=== PATIENT | male | born 1960 | race Caucasian/White ===

== ENCOUNTER 2018-10-27 21:16 | Emergency (ER) | payer MEDICARE, OTHER ==
[2018-10-27] MEDS ORDERED: LORazepam 1 MG Tab PO ONE (21:17)
[2018-10-27] MEDS ORDERED: Clindamycin Phosphate 900 MG in Sodium Chloride 0.9% 100 ML IV ONE (21:41)
[2018-10-27] MEDS ORDERED: Sodium Chloride 0.9% 1,000 ML IV ONE (21:41)
--- NOTE | 2018-10-27 21:47 | EDM.PDOC ---
ED HPI GENERAL MEDICAL PROBLEM - General Chief Complaint: Abdominal Pain Stated Complaint: PAIN ON RIGHT SIDE. BIOPSY ON LIVER SUNDAY Time Seen by Provider: 10/27/18 21:43 Source of Information: Reports: Patient History Limitations: Reports: No Limitations - History of Present Illness INITIAL COMMENTS - FREE TEXT/NARRATIVE: had liver Bx Sunday was ok till yesterday started having right side pain where Bx was done, did eat some steak tonight but abd pain gto worse, no N/V/D. also has abscess tooth been taking amox but not getting better. Right Upper Abdomen Pain Score (Numeric/FACES): 9 - Related Data Allergies Allergy/AdvReac Type Severity Reaction Status Date / Time acetaminophen [From Vicodin] Allergy rash Verified 10/27/18 22:00 itching hydrocodone [From Vicodin] Allergy rash Verified 10/27/18 22:00 itching shellfish derived Allergy tongue Verified 10/27/18 22:00 swells Sulfa (Sulfonamide Allergy Rash Verified 10/27/18 22:00 Antibiotics) Home Meds: Home Meds Albuterol Sulfate [Proair Hfa] 2 puff INH ASDIRECTED PRN 07/07/18 [History] Albuterol/Ipratropium [Combivent Respimat] 2 puff INH ASDIRECTED PRN 07/07/18 [ History] Carbidopa/Levodopa [Carbidopa-Levodopa 25-250] 1 tab PO BEDTIME 07/07/18 [ History] Cetirizine HCl [Allergy] 10 mg PO DAILY PRN 07/07/18 [History] Cholecalciferol (Vitamin D3) [Vitamin D3] 1,000 units PO DAILY 07/07/18 [History ] Diclofenac Sodium 1 applic TOP ASDIRECTED PRN 07/07/18 [History] Glimepiride 4 mg PO DAILY 07/07/18 [History] Losartan Potassium 25 mg PO BID 07/07/18 [History] Omeprazole 20 mg PO DAILY 07/07/18 [History] atorvaSTATin [Lipitor] 40 mg PO DAILY 07/07/18 [History] metFORMIN HCl [Metformin HCl ER] 500 mg PO BID 07/07/18 [History] Past Medical History HEENT History: Reports: Impaired Vision Cardiovascular History: Reports: High Cholesterol, Hypertension Respiratory History: Reports: Asthma Gastrointestinal History: Reports: GERD, Other (See Below) Other Gastrointestinal History: pancreas cycts Genitourinary History: Reports: Other (See Below) Other Genitourinary History: spot on kidney "doctors are watching it" Musculoskeletal History: Reports: Back Pain, Chronic Other Musculoskeletal History: Thoracic pain Neurological History: Reports: Other (See Below) Other Neuro History: restless legs Endocrine/Metabolic History: Reports: Diabetes, Type II, Obesity/BMI 30+ Hematologic History: Reports: None Immunologic History: Reports: None Oncologic (Cancer) History: Reports: None Dermatologic History: Reports: Eczema - Past Surgical History GI Surgical History: Reports: Other (See Below) Other GI Surgeries/Procedures: liver biopsy 10/2018 Musculoskeletal Surgical History: Reports: Other (See Below) Other Musculoskeletal Surgeries/Procedures:: L4, L5, S1 fusion Social & Family History - Family History Family Medical History: Noncontributory - Tobacco Use Smoking Status *Q: Current Every Day Smoker Years of Tobacco use: 30 Packs/Tins Daily: 0.4 - Caffeine Use Caffeine Use: Reports: Coffee - Recreational Drug Use Recreational Drug Use: Yes Drug Use in Last 12 Months: Yes Recreational Drug Type: Reports: Marijuana/Hashish - Living Situation & Occupation Living situation: Reports: , with Family ED ROS GENERAL - Review of Systems Review Of Systems: ROS reveals no pertinent complaints other than HPI. ED EXAM, GI/ABD - Physical Exam Exam: See Below Exam Limited By: No Limitations General Appearance: Alert, WD/WN, Mild Distress, Moderate Distress, Other ( discomfprt) Ears: Hearing Grossly Normal Throat/Mouth: Normal Voice, No Airway Compromise, Other (dental abscess) Head: Atraumatic Neck: Non-Tender, Full Range of Motion Respiratory/Chest: No Respiratory Distress Cardiovascular: Regular Rate, Rhythm GI/Abdominal Exam: Tender, Other (RUQ region). No: Distended, Guarding, Rigid, Rebound Neurological: Alert, Oriented, Normal Cognition, Normal Gait, No Motor/Sensory Deficits Psychiatric: Flat Affect Skin Exam: Warm, Dry, Normal Color Lymphatic: No Adenopathy Course - Vital Signs Last Recorded V/S: Last Vital Signs Temp 37.4 C 10/27/18 21:25 Pulse 86 10/28/18 00:16 Resp 16 10/27/18 23:56 BP 114/54 L 10/28/18 00:16 Pulse Ox 93 L 10/28/18 00:16 - Orders/Labs/Meds Orders: Active Orders 24 hr Category Date Time Status Abdomen Pelvis w Cont [CT] Urgent Exams 10/27/18 22:25 Taken CULTURE BLOOD [BC] Stat Lab 10/27/18 21:55 Received Labs: Laboratory Tests 10/27/18 10/27/18 10/27/18 Range/Units 20:30 21:55 21:55 WBC 13.4 H (5.0-10.0) 10^3/uL RBC 4.89 (4.6-6.2) 10^6/uL Hgb 15.5 (14.0-18.0) g/dL Hct 45.2 (40.0-54.0) % MCV 92.4 D (80-100) fL MCH 31.7 (27.0-34.0) pg MCHC 34.3 (33.0-35.0) g/dL Plt Count 202 (150-450) 10^3/uL Neut % (Auto) 69.0 (42.2-75.2) % Lymph % (Auto) 18.7 L (20.5-50.1) % Davis % (Auto) 9.8 H (2-8) % Eos % (Auto) 2.2 (1.0-3.0) % Baso % (Auto) 0.3 (0.0-1.0) % Sodium 137 (135-145) mmol/L Potassium 3.9 (3.6-5.0) mmol/L Chloride 105 (101-111) mmol/L Carbon Dioxide 21.0 (21.0-31.0) mmol/L Anion Gap 14.9 BUN 15 (7-18) mg/dL Creatinine 1.1 (0.6-1.3) mg/dL Est Cr Clr Drug Dosing 79.36 mL/min Estimated GFR (MDRD) > 60 BUN/Creatinine Ratio 13.63 Glucose 180 H (74-105) mg/dL Lactic Acid (0.5-2.2) mmol/L Calcium 9.4 (8.4-10.2) mg/dl Total Bilirubin 0.6 (0.2-1.0) mg/dL AST 24 (10-42) IU/L ALT 32 (10-60) IU/L Alkaline Phosphatase 40 L (42-121) IU/L Total Protein 7.5 (6.7-8.2) g/dl Albumin 4.2 (3.2-5.5) g/dl Globulin 3.3 Albumin/Globulin Ratio 1.27 Amylase 40 (28-100) U/L Lipase 37 (22-51) U/L Urine Color Yellow (YELLOW) Urine Appearance Clear (CLEAR) Urine pH 5.0 (5.0-9.0) Ur Specific [place] 1.020 (1.005-1.030) Urine Protein 100 H (NEGATIVE) Urine Glucose (UA) Negative (NEGATIVE) Urine Ketones Trace H (NEGATIVE) Urine Occult Blood Negative (NEGATIVE) Urine Nitrite Negative (NEGATIVE) Urine Bilirubin Negative (NEGATIVE) Urine Urobilinogen 0.2 (0.2-1.0) mg/dL Ur Leukocyte Esterase Negative (NEGATIVE) Urine RBC Not seen /HPF Urine WBC 5-10 H (0-5/HPF) /HPF Ur Epithelial Cells Many H /HPF Urine Bacteria Moderate H (0-FEW/HPF) /HPF Urine Mucus Moderate H /LPF 10/27/18 Range/Units 21:55 WBC (5.0-10.0) 10^3/uL RBC (4.6-6.2) 10^6/uL Hgb (14.0-18.0) g/dL Hct (40.0-54.0) % MCV (80-100) fL MCH (27.0-34.0) pg MCHC (33.0-35.0) g/dL Plt Count (150-450) 10^3/uL Neut % (Auto) (42.2-75.2) % Lymph % (Auto) (20.5-50.1) % Davis % (Auto) (2-8) % Eos % (Auto) (1.0-3.0) % Baso % (Auto) (0.0-1.0) % Sodium (135-145) mmol/L Potassium (3.6-5.0) mmol/L Chloride (101-111) mmol/L Carbon Dioxide (21.0-31.0) mmol/L Anion Gap BUN (7-18) mg/dL Creatinine (0.6-1.3) mg/dL Est Cr Clr Drug Dosing mL/min Estimated GFR (MDRD) BUN/Creatinine Ratio Glucose (74-105) mg/dL Lactic Acid 1.5 (0.5-2.2) mmol/L Calcium (8.4-10.2) mg/dl Total Bilirubin (0.2-1.0) mg/dL AST (10-42) IU/L ALT (10-60) IU/L Alkaline Phosphatase (42-121) IU/L Total Protein (6.7-8.2) g/dl Albumin (3.2-5.5) g/dl Globulin Albumin/Globulin Ratio Amylase (28-100) U/L Lipase (22-51) U/L Urine Color (YELLOW) Urine Appearance (CLEAR) Urine pH (5.0-9.0) Ur Specific [place] (1.005-1.030) Urine Protein (NEGATIVE) Urine Glucose (UA) (NEGATIVE) Urine Ketones (NEGATIVE) Urine Occult Blood (NEGATIVE) Urine Nitrite (NEGATIVE) Urine Bilirubin (NEGATIVE) Urine Urobilinogen (0.2-1.0) mg/dL Ur Leukocyte Esterase (NEGATIVE) Urine RBC /HPF Urine WBC (0-5/HPF) /HPF Ur Epithelial Cells /HPF Urine Bacteria (0-FEW/HPF) /HPF Urine Mucus /LPF Meds: Medications Discontinued Medications Generic Name Dose Route Start Last Admin Trade Name Freq PRN Reason Stop Dose Admin Hydromorphone HCl 1 mg 10/27/18 22:12 10/27/18 22:25 Dilaudid IVPUSH 10/27/18 22:13 1 mg ONETIME ONE Administration Hydromorphone HCl 1 mg 10/27/18 23:36 10/27/18 23:41 Dilaudid IVPUSH 10/27/18 23:37 1 mg ONETIME ONE Administration Clindamycin Phosphate 900 mg/ 106 mls @ 200 mls/hr 10/27/18 21:41 10/27/18 22 :03 Sodium Chloride IV 10/27/18 22:12 200 mls/hr ONETIME ONE Administration Sodium Chloride 1,000 mls @ 999 mls/hr 10/27/18 21:41 10/27/18 22:02 Normal Saline IV 10/27/18 22:41 999 mls/hr .BOLUS ONE Administration Iopamidol 100 ml 10/27/18 22:24 10/27/18 22:57 Isovue-300 (61%) IVPUSH 10/27/18 22:25 100 ml ONETIME ONE Administration Ondansetron HCl 4 mg 10/27/18 22:12 10/27/18 22:23 Zofran IV 10/27/18 22:13 4 mg ONETIME ONE Administration - Re-Assessments/Exams Free Text/Narrative Re-Assessment/Exam: 10/28/18 00:25 results discussed with pt. Departure - Departure Time of Disposition: 00:25 Disposition: Home, Self-Care 01 Condition: Fair Clinical Impression: Dental abscess, History of liver biopsy Abdominal pain Qualifiers: Abdominal location: right upper quadrant Qualified Code(s): R10.11 - Right upper quadrant pain - Discharge Information Instructions: Abdominal Pain, Adult, [id number] Forms: ED Department Discharge Additional Instructions: 1) see family doctor tomorrow for follow up rx givne; clindamycin 300mg qid x 40 - My Orders Last 24 Hours: My Active Orders 10/27/18 21:55 CULTURE BLOOD [BC] Stat 10/27/18 22:25 Abdomen Pelvis w Cont [CT] Urgent - Assessment/Plan Last 24 Hours: My Active Orders 10/27/18 21:55 CULTURE BLOOD [BC] Stat 10/27/18 22:25 Abdomen Pelvis w Cont [CT] Urgent
[2018-10-27] MEDS ORDERED: Ondansetron 4 MG/2 ML SDV IV ONE (22:12)
[2018-10-27] MEDS ORDERED: HYDROmorphone 1 MG/ML Syringe IVPUSH ONE ×2 (22:12→23:36)
[2018-10-27] MEDS ORDERED: Iopamidol 612 MG/ML 100 ML Bottle IVPUSH ONE (22:24)
[2018-10-27 22:25] LABS: ANION GAP 14.9; CHLORIDE,CL 105 mmol/L (101-111); SODIUM,NA 137 mmol/L (135-145)
[2018-10-28] MEDS ORDERED: LORazepam 1 MG Tab ONE (00:25)
== END 2018-10-28 00:36 | disposition home or self-care (01) ==
LOC: DL.ED 21:16
DX: R10.11 Right upper quadrant pain (principal); K04.7 Periapical abscess without sinus; Z88.6 Allergy status to analgesic agent; Z91.013 Allergy to seafood; Z88.2 Allergy status to sulfonamides
CPT/HCPCS: 36415; 74177; 80053; 81001; 82150; 83605; 83690; 85025; 87040; 96365; 96366; 96368; 96375; 96376; 99284; J1170; J2405; J3490; J7030; J7050; Q9967; 99283; A9270-GY

== ENCOUNTER 2018-12-01 13:46 | Emergency (ER) | payer MEDICARE, OTHER ==
[2018-12-01] MEDS ORDERED: methylPREDNISolone Sodium Succinate 125 MG/2 ML SDV ONE (14:27)
[2018-12-01] MEDS ORDERED: EPINEPHrine 1 MG/ML SDV ONE ×2 (14:28→16:41)
[2018-12-01] MEDS ORDERED: methylPREDNISolone Sodium Succinate 125 MG/2 ML SDV IM ONE (15:31)
[2018-12-01] MEDS ORDERED: EPINEPHrine 1 MG/ML SDV IM ONE ×2 (15:31→16:30)
[2018-12-01] MEDS ORDERED: Famotidine 20 MG/2 ML SDV IVPUSH ONE (16:11)
[2018-12-01] MEDS ORDERED: diphenhydrAMINE 50 MG/ML SDV ONE (16:11)
[2018-12-01] MEDS ORDERED: diphenhydrAMINE 50 MG/ML SDV IVPUSH ONE (16:11)
[2018-12-01 16:44] LABS: CHLORIDE,CL 102 mmol/L (101-111); SODIUM,NA 135 mmol/L (135-145)
[2018-12-01] MEDS ORDERED: EPINEPHrine 1 MG in Dextrose 5% in Water 100 ML IV SCH ×2 (16:45)
--- NOTE | 2018-12-01 16:51 | EDM.PDOC ---
Scribed by Halima Hall 12/01/18 2163 for Eugenie Haas NP ED HPI GENERAL MEDICAL PROBLEM - General Chief Complaint: Allergic Reaction Stated Complaint: RASH-TONGUE SWELLING UP Time Seen by Provider: 12/01/18 14:20 Source of Information: Reports: Patient, RN, RN Notes Reviewed History Limitations: Reports: No Limitations - History of Present Illness INITIAL COMMENTS - FREE TEXT/NARRATIVE: Patient presents to the ER with history of rash and itch. Patient had pneumonia vaccine on Sunday. He has chest tightness and shortness of breath. He has a headache and chills. He is a known diabetic with blood sugar 238 on admit to ER. He took a Benadryl one and half hours prior to coming to ER. He also has nausea and vomiting. Patient has no known cause for allergy reaction. He is allergic to shellfish and sulfa. Onset: Gradual Duration: Getting Worse Location: Reports: Generalized Quality: Reports: Other (itch) Severity: Mild Improves with: Reports: None Worsens with: Reports: None Associated Symptoms: Reports: No Other Symptoms - Related Data Allergies Allergy/AdvReac Type Severity Reaction Status Date / Time acetaminophen [From Vicodin] Allergy rash Verified 12/01/18 15:26 itching hydrocodone [From Vicodin] Allergy rash Verified 12/01/18 15:26 itching shellfish derived Allergy tongue Verified 12/01/18 15:26 swells Sulfa (Sulfonamide Allergy Rash Verified 12/01/18 15:26 Antibiotics) Home Meds: Home Meds Albuterol Sulfate [Proair Hfa] 2 puff INH ASDIRECTED PRN 07/07/18 [History] Albuterol/Ipratropium [Combivent Respimat] 2 puff INH ASDIRECTED PRN 07/07/18 [ History] Carbidopa/Levodopa [Carbidopa-Levodopa 25-250] 1 tab PO BEDTIME 07/07/18 [ History] Cetirizine HCl [Allergy] 10 mg PO DAILY PRN 07/07/18 [History] Cholecalciferol (Vitamin D3) [Vitamin D3] 1,000 units PO DAILY 07/07/18 [History ] Diclofenac Sodium 1 applic TOP ASDIRECTED PRN 07/07/18 [History] Glimepiride 4 mg PO DAILY 07/07/18 [History] Losartan Potassium 25 mg PO BID 07/07/18 [History] Omeprazole 20 mg PO DAILY 07/07/18 [History] atorvaSTATin [Lipitor] 40 mg PO DAILY 07/07/18 [History] metFORMIN HCl [Metformin HCl ER] 500 mg PO BID 07/07/18 [History] Past Medical History HEENT History: Reports: Impaired Vision Cardiovascular History: Reports: High Cholesterol, Hypertension Respiratory History: Reports: Asthma Gastrointestinal History: Reports: GERD, Other (See Below) Other Gastrointestinal History: pancreas cycts Genitourinary History: Reports: Other (See Below) Other Genitourinary History: spot on kidney "doctors are watching it" Musculoskeletal History: Reports: Back Pain, Chronic Other Musculoskeletal History: Thoracic pain Neurological History: Reports: Other (See Below) Other Neuro History: restless legs Endocrine/Metabolic History: Reports: Diabetes, Type II, Obesity/BMI 30+ Hematologic History: Reports: None Immunologic History: Reports: None Oncologic (Cancer) History: Reports: None Dermatologic History: Reports: Eczema - Past Surgical History GI Surgical History: Reports: Other (See Below) Other GI Surgeries/Procedures: liver biopsy 10/2018 Musculoskeletal Surgical History: Reports: Other (See Below) Other Musculoskeletal Surgeries/Procedures:: L4, L5, S1 fusion Social & Family History - Family History Family Medical History: Noncontributory - Caffeine Use Caffeine Use: Reports: Coffee - Living Situation & Occupation Living situation: Reports: , with Family ED ROS ALLERGIC REACTION - Review of Systems Review Of Systems: ROS reveals no pertinent complaints other than HPI. ED EXAM GENERAL NO PERIP PULSE - Physical Exam Exam: See Below Exam Limited By: No Limitations General Appearance: Alert, WD/WN, No Apparent Distress Eye Exam: Bilateral Eye: Normal Inspection Ears: Normal External Exam, Normal Canal, Hearing Grossly Normal, Normal TMs Nose: Normal Inspection, Normal Mucosa, No Blood Throat/Mouth: Normal Inspection, Normal Lips, Normal Teeth, Normal Gums, Normal Oropharynx, Normal Voice, No Airway Compromise, Other (I did not note lips or tongue to be swollen; but patient feels sharri is mildly swollen) Head: Atraumatic, Normocephalic Neck: Normal Inspection, Supple, Non-Tender, Full Range of Motion Respiratory/Chest: Other (chest slightly tight without wheezing) GI/Abdominal: Normal Bowel Sounds, Soft, Non-Tender, No Organomegaly, No Distention, No Abnormal Bruit, No Mass (Male) Exam: No Hernia, Normal Inspection, Normal Prostate, Circumcised Skin Exam: Other (head to toe urticaria and itchy. Questionable angioedema. ) Course - Vital Signs Last Recorded V/S: Last Vital Signs Temp 36.4 C 12/01/18 14:00 Pulse 87 12/01/18 14:00 Resp 24 H 12/01/18 14:00 BP 142/68 H 12/01/18 14:00 Pulse Ox 94 L 12/01/18 14:00 - Orders/Labs/Meds Orders: Active Orders 24 hr Category Date Time Status Blood Glucose Check, Bedside [RC] ONETIME Care 12/01/18 15:47 Active CBC WITH AUTO DIFF [HEME] Stat Lab 12/01/18 14:48 Results CMP [COMPREHENSIVE METABOLIC PN,CMP] [CHEM] Stat Lab 12/01/18 14:48 Received MANUAL DIFFERENTIAL QA/NC [HEME] Stat Lab 12/01/18 14:48 Results Labs: Laboratory Tests 12/01/18 12/01/18 Range/Units 14:48 15:46 WBC 10.0 (5.0-10.0) 10^3/uL RBC 5.96 (4.6-6.2) 10^6/uL Hgb 18.9 H D (14.0-18.0) g/dL Hct 54.5 H (40.0-54.0) % MCV 91.4 (80-100) fL MCH 31.7 (27.0-34.0) pg MCHC 34.7 (33.0-35.0) g/dL Plt Count 201 (150-450) 10^3/uL Neut % (Auto) 62.9 (42.2-75.2) % Lymph % (Auto) 26.8 (20.5-50.1) % [place] % (Auto) 9.2 H (2-8) % Eos % (Auto) 1.0 (1.0-3.0) % Baso % (Auto) 0.1 (0.0-1.0) % Add Manual Diff Yes POC Glucose 158 H (70-105) mg/dl Meds: Medications Discontinued Medications Generic Name Dose Route Start Last Admin Trade Name Freq PRN Reason Stop Dose Admin Diphenhydramine HCl 50 mg 12/01/18 16:11 12/01/18 16:37 Benadryl IVPUSH 12/01/18 16:12 Not Given ONETIME ONE Diphenhydramine HCl Confirm 12/01/18 16:11 12/01/18 16:20 Benadryl Administered 12/01/18 16:12 50 mg Dose Administration 50 mg .ROUTE .STK-MED ONE Epinephrine HCl Confirm 12/01/18 14:28 12/01/18 14:28 Adrenalin Administered 12/01/18 14:29 1 mg Dose Administration 1 mg .ROUTE .STK-MED ONE Epinephrine HCl 0.5 mg 12/01/18 15:31 12/01/18 15:33 Adrenalin IM 12/01/18 15:32 Not Given ONETIME ONE Famotidine 20 mg 12/01/18 16:11 Pepcid IVPUSH 12/01/18 16:12 ONETIME ONE Methylprednisolone Sodium Succinate Confirm 12/01/18 14:27 12/01/18 14:28 Solu-Medrol Administered 12/01/18 14:28 125 mg Dose Administration 125 mg .ROUTE .STK-MED ONE Methylprednisolone Sodium Succinate 125 mg 12/01/18 15:31 12/01/18 15:33 Solu-Medrol IM 12/01/18 15:32 Not Given ONETIME ONE - Re-Assessments/Exams Free Text/Narrative Re-Assessment/Exam: 12/01/18 16:10 Patient given epi 0.5 ml and Solu Medrol on admission. Improved. Many attempts by nursing and anesthesia early on to place IV; but kept blowing. Itch and welts returned at 1610 with tongue swelling increased urticaria and blood pressure dropped; IV site obtained by anesthesia; gave Benadryl 50 mg IM and epi 0.5 ml and pepcid 20 mg iv. After talking to Yesica Mendoza whom accepted to the ER in [place]; patient was started on epi gtt titrating to BP. EMS [facility] here for transfer. 12/01/18 16:46 Departure - Departure Time of Disposition: 16:38 Disposition: DC/Tfer to Acute Hospital 02 Condition: Serious Clinical Impression: Anaphylactic reaction, Hypotension, Diabetes - Discharge Information Forms: ED Department Discharge, Interfacility Transfer EMTALA - My Orders Last 24 Hours: My Active Orders 12/01/18 14:48 CBC WITH AUTO DIFF [HEME] Stat CMP [COMPREHENSIVE METABOLIC PN,CMP] [CHEM] Stat MANUAL DIFFERENTIAL QA/NC [HEME] Stat 12/01/18 15:47 Blood Glucose Check, Bedside [RC] ONETIME - Assessment/Plan Last 24 Hours: My Active Orders 12/01/18 14:48 CBC WITH AUTO DIFF [HEME] Stat CMP [COMPREHENSIVE METABOLIC PN,CMP] [CHEM] Stat MANUAL DIFFERENTIAL QA/NC [HEME] Stat 12/01/18 15:47 Blood Glucose Check, Bedside [RC] ONETIME I have read and agree with the documentation that has been completed regarding this visit. By signing this record, I attest that the documentation was completed in my physical presence and is an accurate record of the encounter.
--- NOTE | 2018-12-01 17:01 | PCM.PRNOTE ---
- Free Text/Narrative Note: Consulted by ED to insert an IV on a patient who has had multiple attempts by multiple RN. Upon entering room, pt is lying on a stretcher but in distress secondary to rash/allergic reaction. A tourniquet was applied to the left bicep. The right antecubital area was cleaned with alcohol. Using a 20 gauge angiocath, an IV was inserted into the left lateral antecubital area on first attempt. Excellent blood return. IV flushes without difficulty. IV was covered with tegaderm and secured with tape. RN was notified/present. Procedure Date & Time: 12/01/18 [id number]
== END 2018-12-01 17:40 ==
LOC: DL.ED 13:46
DX: I95.9 Hypotension, unspecified (principal); R22.0 Localized swelling, mass and lump, head; T78.2XXA Anaphylactic shock, unspecified, initial encounter; E78.00 Pure hypercholesterolemia, unspecified; I10 Essential (primary) hypertension; J45.909 Unspecified asthma, uncomplicated; E11.9 Type 2 diabetes mellitus without complications; Z91.013 Allergy to seafood; Z88.8 Allergy status to other drugs, medicaments and biological substances; Z88.5 Allergy status to narcotic agent; Z88.2 Allergy status to sulfonamides; Z79.899 Other long term (current) drug therapy
CPT/HCPCS: 36410; 36415; 80053; 82962; 85025; 96365; 96372; 96375; 99285; J0171; J1200; J2930; J3490; J7060

== ENCOUNTER 2019-08-24 13:30 | Emergency (ER) | payer MEDICARE, OTHER ==
--- NOTE | 2019-08-24 14:47 | EDM.PDOC ---
ED HPI GENERAL MEDICAL PROBLEM - General Chief Complaint: General Stated Complaint: COUGHING/SHAKY/WEAK/POSSIBLE INFLUENZA Time Seen by Provider: 08/24/19 15:43 Source of Information: Reports: Patient, RN, RN Notes Reviewed History Limitations: Reports: No Limitations - History of Present Illness INITIAL COMMENTS - FREE TEXT/NARRATIVE: A 59-year-old male who presents with his spouse with complaints of malaise, fever, chills, nonproductive cough, sore throat x3 days. Patient was just getting over a sinus infection 1 week ago and became sick again 3 days ago. His is currently ill. He admits to trying Tylenol 500 mg prior to ER visit. He denies any nausea, vomiting, chest pain, shortness of breath or palpitations. Onset Date: 08/21/19 Duration: Constant Location: Reports: Generalized Quality: Reports: Ache Severity: Mild Improves with: Reports: None Worsens with: Reports: None Associated Symptoms: Reports: No Other Symptoms Head Pain Score (Numeric/FACES): 4 - Related Data Allergies Allergy/AdvReac Type Severity Reaction Status Date / Time acetaminophen [From Vicodin] Allergy rash Verified 12/01/18 15:26 itching hydrocodone [From Vicodin] Allergy rash Verified 12/01/18 15:26 itching shellfish derived Allergy tongue Verified 12/01/18 15:26 swells Sulfa (Sulfonamide Allergy Rash Verified 08/24/19 14:05 Antibiotics) Home Meds: Home Meds Albuterol Sulfate [Proair Hfa] 2 puff INH ASDIRECTED PRN 07/07/18 [History] Albuterol/Ipratropium [Combivent Respimat] 2 puff INH ASDIRECTED PRN 07/07/18 [ History] Carbidopa/Levodopa [Carbidopa-Levodopa 25-250] 1 tab PO BEDTIME 07/07/18 [ History] Cetirizine HCl [Allergy] 10 mg PO DAILY PRN 07/07/18 [History] Cholecalciferol (Vitamin D3) [Vitamin D3] 1,000 units PO DAILY 07/07/18 [History ] Diclofenac Sodium 1 applic TOP ASDIRECTED PRN 07/07/18 [History] Glimepiride 4 mg PO DAILY 07/07/18 [History] Losartan Potassium 25 mg PO BID 07/07/18 [History] Omeprazole 20 mg PO DAILY 07/07/18 [History] atorvaSTATin [Lipitor] 40 mg PO DAILY 07/07/18 [History] metFORMIN HCl [Metformin HCl ER] 500 mg PO BID 07/07/18 [History] Past Medical History HEENT History: Reports: Impaired Vision Cardiovascular History: Reports: High Cholesterol, Hypertension Respiratory History: Reports: Asthma Gastrointestinal History: Reports: GERD, Other (See Below) Other Gastrointestinal History: pancreas cycts Genitourinary History: Reports: Other (See Below) Other Genitourinary History: spot on kidney "doctors are watching it" Musculoskeletal History: Reports: Back Pain, Chronic Other Musculoskeletal History: Thoracic pain Neurological History: Reports: Other (See Below) Other Neuro History: restless legs Endocrine/Metabolic History: Reports: Diabetes, Type II, Obesity/BMI 30+ Hematologic History: Reports: None Immunologic History: Reports: None Oncologic (Cancer) History: Reports: None Dermatologic History: Reports: Eczema - Past Surgical History GI Surgical History: Reports: Other (See Below) Other GI Surgeries/Procedures: liver biopsy 10/2018 Musculoskeletal Surgical History: Reports: Other (See Below) Other Musculoskeletal Surgeries/Procedures:: L4, L5, S1 fusion Social & Family History - Family History Family Medical History: Noncontributory - Tobacco Use Smoking Status *Q: Former Smoker Years of Tobacco use: 30 Used Tobacco, but Quit: Yes Month/Year Tobacco Last Used: 2015 - Caffeine Use Caffeine Use: Reports: Coffee - Alcohol Use Days Per Week of Alcohol Use: 1 Number of Drinks Per Day: 1 Total Drinks Per Week: 1 - Recreational Drug Use Recreational Drug Use: No - Living Situation & Occupation Living situation: Reports: , with Family ED ROS GENERAL - Review of Systems Review Of Systems: Comprehensive ROS is negative, except as noted in HPI. ED EXAM, GENERAL - Physical Exam Exam: See Below Exam Limited By: No Limitations General Appearance: Alert, WD/WN, No Apparent Distress Eye Exam: Bilateral Eye: Normal Inspection Ears: Normal External Exam, Normal Canal, Hearing Grossly Normal, Normal TMs Nose: Normal Inspection, Normal Mucosa, No Blood Throat/Mouth: Normal Inspection, Normal Lips, Normal Teeth, Normal Gums, Normal Oropharynx, Normal Voice, No Airway Compromise Head: Atraumatic, Normocephalic Neck: Normal Inspection, Supple, Non-Tender, Full Range of Motion Respiratory/Chest: No Respiratory Distress, Lungs Clear, Normal Breath Sounds, No Accessory Muscle Use, Chest Non-Tender Cardiovascular: Normal Peripheral Pulses, Regular Rate, Rhythm, No Edema, No Gallop, No JVD, No Murmur, No Rub GI/Abdominal: Normal Bowel Sounds, Soft, Non-Tender, No Organomegaly, No Distention, No Abnormal Bruit, No Mass (Male) Exam: Deferred Rectal (Males) Exam: Deferred Neurological: Alert Psychiatric: Normal Affect, Normal Mood Skin Exam: Warm, Dry, Intact, Normal Color, No Rash Lymphatic: No Adenopathy Course - Vital Signs Last Recorded V/S: Last Vital Signs Temp 98.3 F 08/24/19 13:39 Pulse 93 08/24/19 13:39 Resp 18 08/24/19 13:39 BP 125/65 08/24/19 13:39 Pulse Ox 99 08/24/19 13:39 - Orders/Labs/Meds Labs: Influenza A: Positive. Influenza B: Negative. Meds: Medications Discontinued Medications Generic Name Dose Route Start Last Admin Trade Name Eleuterio PRN Reason Stop Dose Admin Acetaminophen 650 mg 08/24/19 15:56 Tylenol PO 08/24/19 15:57 NOW ONE Oseltamivir Phosphate 75 mg 08/24/19 15:56 Tamiflu PO 08/24/19 15:57 ONETIME ONE - Re-Assessments/Exams Free Text/Narrative Re-Assessment/Exam: 08/24/19 16:12 Reviewed lab results with patient and spouse. Tamiflu 75mg and Tylenol 650mg administered. RX with Tamiflu sent with patient. Recommended he push fluids and rest. Salt water gargles 2 to 3 times a day for sore throat. Tylenol p.r.n. every 6 hours not exceeding 4,000 mg a day recommended. Follow up in clinic if symptoms persist. Departure - Departure Time of Disposition: 16:13 Disposition: Home, Self-Care 01 Condition: Good Clinical Impression: Influenza A - Discharge Information Instructions: Influenza, Adult, [id number] Forms: ED Department Discharge Additional Instructions: RX: Tamiflu 75 mg. Push fluids. Rest. Follow up with PCP if not improved. Sepsis Event Note - Evaluation Sepsis Screening Result: No Definite Risk - Focused Exam Vital Signs: Vital Signs Temp Pulse Resp BP Pulse Ox 08/24/19 13:39 98.3 F 93 18 125/65 99 Date Exam was Performed: 08/24/19 Time Exam was Performed: 16:08
[2019-08-24] MEDS ORDERED: Oseltamivir 75 MG Cap PO ONE (15:56)
[2019-08-24] MEDS ORDERED: Acetaminophen 325 MG Tab PO ONE (15:56)
== END 2019-08-24 16:24 | disposition home or self-care (01) ==
LOC: DL.ED 13:30
DX: J10.1 Influenza due to other identified influenza virus with other respiratory manifestations (principal); E11.9 Type 2 diabetes mellitus without complications; E66.9 Obesity, unspecified; I10 Essential (primary) hypertension; E78.00 Pure hypercholesterolemia, unspecified; J45.909 Unspecified asthma, uncomplicated; K21.9 Gastro-esophageal reflux disease without esophagitis; Z88.6 Allergy status to analgesic agent; Z68.34 Body mass index [BMI] 34.0-34.9, adult; Z88.2 Allergy status to sulfonamides; Z91.013 Allergy to seafood; Z79.899 Other long term (current) drug therapy; Z79.84 Long term (current) use of oral hypoglycemic drugs; Z87.891 Personal history of nicotine dependence
CPT/HCPCS: 87804; 99283; A9270

== ENCOUNTER 2020-06-25 14:59 | Emergency (ER) | payer MEDICARE, OTHER ==
--- NOTE | 2020-06-25 15:44 | EDM.PDOC ---
ED HPI GENERAL MEDICAL PROBLEM - General Chief Complaint: Genitourinary Problem Stated Complaint: right kidney pain prior kidney cancer Time Seen by Provider: 06/25/20 15:30 Source of Information: Reports: Patient History Limitations: Reports: No Limitations - History of Present Illness INITIAL COMMENTS - FREE TEXT/NARRATIVE: This 60 yo male patient reports to the ED with right kidney, right upper quadrant pain and right flank pain getting worse over the past 3 weeks. The patient reports he has a history of right sided kidney cancer that has been surgically removed. The patient reports he has needed to have injections into his kidney 2 times in the past due to increased pain. The patient has attempted to get back into his specialist (Dr. Jarrett), but has not been able to get into him yet. The patient reports his pain is now at a level that he can not tolerate it at home. The patient has been taking Aleve, ibuprofen and Tylenol with little to no symptom relief. The patient reports his current pain is between a 8-5-8/10 at the time of visit. The patient reports he would be able to tolerate pain at a 3/10. The patient reports he has safely taken Dilaudid in the past, but got some constipation from that. Duration: Week(s): (3), Constant, Getting Worse Location: Reports: Abdomen (RUQ), Back (Right flank) Quality: Reports: Ache, Sharp Severity: Severe Improves with: Reports: None Worsens with: Reports: None Context: Reports: Other Associated Symptoms: Reports: No Other Symptoms Treatments CONSTRUCTION CHECKER: Reports: Acetaminophen, NSAIDS Right Flank Pain Score (Numeric/FACES): 8 - Related Data Allergies Allergy/AdvReac Type Severity Reaction Status Date / Time acetaminophen [From Vicodin] Allergy rash Verified 12/01/18 15:26 itching hydrocodone [From Vicodin] Allergy rash Verified 12/01/18 15:26 itching shellfish derived Allergy tongue Verified 12/01/18 15:26 swells Sulfa (Sulfonamide Allergy Rash Verified 08/24/19 14:05 Antibiotics) Home Meds: Home Meds Albuterol Sulfate [Proair Hfa] 2 puff INH ASDIRECTED PRN 07/07/18 [History] Albuterol/Ipratropium [Combivent Respimat] 2 puff INH ASDIRECTED PRN 07/07/18 [History] Carbidopa/Levodopa [Carbidopa-Levodopa 25-250] 1 tab PO BEDTIME 07/07/18 [Hist ory] Cetirizine HCl [Allergy] 10 mg PO DAILY PRN 07/07/18 [History] Cholecalciferol (Vitamin D3) [Vitamin D3] 1,000 units PO DAILY 07/07/18 [History] Diclofenac Sodium 1 applic TOP ASDIRECTED PRN 07/07/18 [History] Glimepiride 4 mg PO DAILY 07/07/18 [History] Losartan Potassium 25 mg PO BID 07/07/18 [History] Omeprazole 20 mg PO DAILY 07/07/18 [History] atorvaSTATin [Lipitor] 40 mg PO DAILY 07/07/18 [History] metFORMIN HCl [Metformin HCl ER] 500 mg PO BID 07/07/18 [History] Past Medical History HEENT History: Reports: Impaired Vision Cardiovascular History: Reports: High Cholesterol, Hypertension Respiratory History: Reports: Asthma Gastrointestinal History: Reports: GERD, Other (See Below) Other Gastrointestinal History: pancreas cycts Genitourinary History: Reports: Other (See Below) Other Genitourinary History: spot on kidney "doctors are watching it" Musculoskeletal History: Reports: Back Pain, Chronic Other Musculoskeletal History: Thoracic pain Neurological History: Reports: Other (See Below) Other Neuro History: restless legs Endocrine/Metabolic History: Reports: Diabetes, Type II, Obesity/BMI 30+ Hematologic History: Reports: None Immunologic History: Reports: None Oncologic (Cancer) History: Reports: None Dermatologic History: Reports: Eczema - Past Surgical History GI Surgical History: Reports: Other (See Below) Other GI Surgeries/Procedures: liver biopsy 10/2018 Musculoskeletal Surgical History: Reports: Other (See Below) Other Musculoskeletal Surgeries/Procedures:: L4, L5, S1 fusion Social & Family History - Family History Family Medical History: No Pertinent Family History - Caffeine Use Caffeine Use: Reports: Coffee - Living Situation & Occupation Living situation: Reports: , with Family ED ROS GENERAL - Review of Systems Review Of Systems: Comprehensive ROS is negative, except as noted in HPI. ED EXAM, RENAL/ - Physical Exam Exam: See Below Exam Limited By: No Limitations General Appearance: Alert, WD/WN, Moderate Distress Eye Exam: Bilateral Eye: EOMI, Normal Inspection, PERRL Ears: Normal External Exam, Normal Canal, Hearing Grossly Normal, Normal TMs Nose: Normal Inspection, Normal Mucosa, No Blood Throat/Mouth: Normal Inspection, Normal Lips, Normal Teeth, Normal Gums, Normal Oropharynx, Normal Voice, No Airway Compromise Head: Atraumatic, Normocephalic Neck: Normal Inspection, Supple, Non-Tender, Full Range of Motion Respiratory/Chest: No Respiratory Distress, Lungs Clear, Normal Breath Sounds, No Accessory Muscle Use, Chest Non-Tender Cardiovascular: Normal Peripheral Pulses, Regular Rate, Rhythm, No Edema, No Gallop, No JVD, No Murmur, No Rub GI/Abdominal: Normal Bowel Sounds, No Organomegaly, No Distention, No Abnormal Bruit, No Mass, Pelvis Stable, Tender (RUQ) (Male) Exam: Deferred Rectal (Males) Exam: Deferred Back Exam: CVA Tenderness (R) Extremities: Normal Inspection, Normal Range of Motion, Non-Tender, Normal Capillary Refill, No Pedal Edema Neurological: Alert, Oriented, CN II-XII Intact, Normal Cognition, Normal Gait, Normal Reflexes, No Motor/Sensory Deficits Psychiatric: Normal Affect, Normal Mood Skin Exam: Warm, Dry, Intact, Normal Color, No Rash Lymphatic: No Adenopathy Course - Vital Signs Last Recorded V/S: Last Vital Signs Temp 36.6 C 06/25/20 15:15 Pulse 79 06/25/20 15:15 Resp 16 06/25/20 15:15 BP 154/87 H 06/25/20 15:15 Pulse Ox 100 06/25/20 15:15 - Orders/Labs/Meds Labs: Laboratory Tests 06/25/20 06/25/20 06/25/20 Range/Units 15:29 15:29 15:45 WBC 8.7 (5.0-10.0) 10^3/uL RBC 4.66 (4.6-6.2) 10^6/uL Hgb 15.5 D (14.0-18.0) g/dL Hct 45.0 (40.0-54.0) % MCV 96.6 D (80-100) fL MCH 33.3 (27.0-34.0) pg MCHC 34.4 (33.0-35.0) g/dL Plt Count 185 (150-450) 10^3/uL Neut % (Auto) 60.1 (42.2-75.2) % Lymph % (Auto) 29.0 (20.5-50.1) % [place] % (Auto) 8.9 H (2-8) % Eos % (Auto) 1.4 (1.0-3.0) % Baso % (Auto) 0.6 (0.0-1.0) % Sodium (136-145) mmol/L Potassium (3.5-5.1) mmol/L Chloride (98-107) mmol/L Carbon Dioxide (21-32) mmol/L Anion Gap (7-13) mEq/L BUN (7-18) mg/dL Creatinine (0.70-1.30) mg/dL Est Cr Clr Drug Dosing mL/min Estimated GFR (MDRD) BUN/Creatinine Ratio (No establ ref range) Glucose (74-99) mg/dL Calcium (8.5-10.1) mg/dL Total Bilirubin (0.2-1.0) mg/dL AST (15-37) U/L ALT (16-63) U/L Alkaline Phosphatase (46-116) U/L Total Protein (6.4-8.2) g/dL Albumin (3.4-5.0) g/dL Globulin Albumin/Globulin Ratio Urine Color Yellow (YELLOW) Urine Appearance Clear (CLEAR) Urine pH 6.5 (5.0-9.0) Ur Specific [place] >= 1.030 (1.005-1.030) Urine Protein 100 H (NEGATIVE) Urine Glucose (UA) Negative (NEGATIVE) Urine Ketones Negative (NEGATIVE) Urine Occult Blood Negative (NEGATIVE) Urine Nitrite Negative (NEGATIVE) Urine Bilirubin Negative (NEGATIVE) Urine Urobilinogen 0.2 (0.2-1.0) mg/dL Ur Leukocyte Esterase Negative (NEGATIVE) Urine RBC 0-5 /HPF Urine WBC 0-5 (0-5/HPF) /HPF Ur Epithelial Cells Few (NOT SEEN) /HPF Amorphous Sediment Few (NOT SEEN) /HPF Urine Bacteria Few (0-FEW/HPF) /HPF Urine Mucus Few H (NOT SEEN) /LPF Urine Opiates Screen Negative (NEGATIVE) Ur Oxycodone Screen Negative (NEGATIVE) Urine Methadone Screen Negative (NEGATIVE) Ur Barbiturates Screen Negative (NEGATIVE) U Tricyclic Antidepress Positive H (NEGATIVE) Ur Phencyclidine Scrn Negative (NEGATIVE) Ur Amphetamine Screen Negative (NEGATIVE) U Methamphetamines Scrn Negative (NEGATIVE) Urine MDMA Screen Negative (NEGATIVE) U Benzodiazepines Scrn Negative (NEGATIVE) Urine Cocaine Screen Negative (NEGATIVE) U Marijuana (THC) Screen Positive H (NEGATIVE) 06/25/20 Range/Units 15:45 WBC (5.0-10.0) 10^3/uL RBC (4.6-6.2) 10^6/uL Hgb (14.0-18.0) g/dL Hct (40.0-54.0) % MCV (80-100) fL MCH (27.0-34.0) pg MCHC (33.0-35.0) g/dL Plt Count (150-450) 10^3/uL Neut % (Auto) (42.2-75.2) % Lymph % (Auto) (20.5-50.1) % [place] % (Auto) (2-8) % Eos % (Auto) (1.0-3.0) % Baso % (Auto) (0.0-1.0) % Sodium 143 (136-145) mmol/L Potassium 4.0 (3.5-5.1) mmol/L Chloride 103 (98-107) mmol/L Carbon Dioxide 30 (21-32) mmol/L Anion Gap 14.0 H (7-13) mEq/L BUN 13 (7-18) mg/dL Creatinine 0.96 (0.70-1.30) mg/dL Est Cr Clr Drug Dosing 88.69 mL/min Estimated GFR (MDRD) > 60 BUN/Creatinine Ratio 13.5 (No establ ref range) Glucose 155 H (74-99) mg/dL Calcium 9.4 (8.5-10.1) mg/dL Total Bilirubin 0.4 (0.2-1.0) mg/dL AST 21 (15-37) U/L ALT 53 (16-63) U/L Alkaline Phosphatase 36 L (46-116) U/L Total Protein 6.9 (6.4-8.2) g/dL Albumin 4.2 (3.4-5.0) g/dL Globulin 2.7 Albumin/Globulin Ratio 1.6 Urine Color (YELLOW) Urine Appearance (CLEAR) Urine pH (5.0-9.0) Ur Specific [place] (1.005-1.030) Urine Protein (NEGATIVE) Urine Glucose (UA) (NEGATIVE) Urine Ketones (NEGATIVE) Urine Occult Blood (NEGATIVE) Urine Nitrite (NEGATIVE) Urine Bilirubin (NEGATIVE) Urine Urobilinogen (0.2-1.0) mg/dL Ur Leukocyte Esterase (NEGATIVE) Urine RBC /HPF Urine WBC (0-5/HPF) /HPF Ur Epithelial Cells (NOT SEEN) /HPF Amorphous Sediment (NOT SEEN) /HPF Urine Bacteria (0-FEW/HPF) /HPF Urine Mucus (NOT SEEN) /LPF Urine Opiates Screen (NEGATIVE) Ur Oxycodone Screen (NEGATIVE) Urine Methadone Screen (NEGATIVE) Ur Barbiturates Screen (NEGATIVE) U Tricyclic Antidepress (NEGATIVE) Ur Phencyclidine Scrn (NEGATIVE) Ur Amphetamine Screen (NEGATIVE) U Methamphetamines Scrn (NEGATIVE) Urine MDMA Screen (NEGATIVE) U Benzodiazepines Scrn (NEGATIVE) Urine Cocaine Screen (NEGATIVE) U Marijuana (THC) Screen (NEGATIVE) Meds: Medications Discontinued Medications Generic Name Dose Route Start Last Admin Trade Name Freq PRN Reason Stop Dose Admin Hydromorphone HCl 0.5 mg 06/25/20 15:38 06/25/20 15:49 Dilaudid IVPUSH 06/25/20 15:39 0.5 mg ONETIME ONE Administration Hydromorphone HCl 0.5 mg 06/25/20 17:02 Dilaudid IVPUSH 06/25/20 17:03 ONETIME ONE Departure - Departure Time of Disposition: 17:04 Disposition: Home, Self-Care 01 Condition: Fair Clinical Impression: Right flank pain, chronic - Discharge Information *PRESCRIPTION DRUG MONITORING PROGRAM REVIEWED*: Not Applicable *COPY OF PRESCRIPTION DRUG MONITORING REPORT IN PATIENT ANJU: Not Applicable Instructions: Chronic Pain, Adult Forms: ED Department Discharge Care Plan Goals: The patient was advised of the examination, lab and CT results during the visit. The patient was given two IV doses of Dilaudid (0.5 mg) while in the ED. The patient was discharged with a script for Percocet (5/325) #12 to take 1 by mouth every 6 hours as needed for pain. If the patient has any additional symptoms or concerns, the patient should either return to the emergency department or visit his primary care facility. Sepsis Event Note (ED) - Focused Exam Vital Signs: Vital Signs Temp Pulse Resp BP Pulse Ox 06/25/20 15:15 36.6 C 79 16 154/87 H 100
[2020-06-25] MEDS: HYDROmorphone 0.5 MG/0.5 ML Syringe IVPUSH ONE ×2 (15:49→17:09)
[2020-06-25 16:18] LABS: CHLORIDE,CL 103 mmol/L (98-107); SODIUM,NA 143 mmol/L (136-145)
--- NOTE | 2020-06-25 16:59 | CT ---
PROCEDURE INFORMATION: Exam: CT Abdomen Without Contrast Exam date and time: 06/25/2020 4:29 PM Age: 60 years old Clinical indication: Other: HX right kidney CA, liver cyst, pancreatitis cyst; Additional info: Right upper abdominal/right flank pain TECHNIQUE: Imaging protocol: Computed tomography images of the abdomen without contrast. Radiation optimization: All CT scans at this facility use at least one of these dose optimization techniques: automated exposure control; mA and/or kV adjustment per patient size (includes targeted exams where dose is matched to clinical indication); or iterative reconstruction. COMPARISON: 1. CT Abdomen Pelvis w Cont 10/27/2018 11:[address] abdomen and pelvis without contrast 07/07/2018 FINDINGS: Limitations: None. Liver: Chronic focal lateral right liver hypoattenuation. The liver is otherwise normal. Gallbladder and bile ducts: Normal. Pancreas: Normal. Spleen: Normal. Adrenals: Normal. Kidneys and ureters: Amorphous calcification in the bilateral renal pyramids. Chronic unchanged subcentimeter left renal cortical cyst. Stomach and bowel: Normal stomach and incompletely visualized bowel. Appendix: Normal appendix. Intraperitoneal space: No ascites, pneumoperitoneum or peritoneal lesion. Lymph nodes: No mesenteric or retroperitoneal adenopathy. Vasculature: Benign variant circumaortic left renal vein. Mild scattered aortosclerosis. The vessels have normal caliber. Multivessel coronary artery calcification. Bones/joints: L4 through S1 bilateral transpedicular fixation following laminectomies and disc spacer placement. Soft tissues: Chronic unchanged fat containing umbilical hernia. IMPRESSION: 1. Normal pancreas. No acute disease. 2. Chronic unchanged right liver hypodensity/hypodense region, fatty infiltration versus atypical cyst or other benign entity. 3. There are findings indicating mild bilateral medullary sponge kidney and there is a simple cyst related to the left kidney but no renal masses or evidence of prior surgical intervention. 4. Unchanged small ventral fat containing hernia.
== END 2020-06-25 17:13 | disposition home or self-care (01) ==
LOC: DL.ED 14:59
DX: R10.11 Right upper quadrant pain (principal); E78.00 Pure hypercholesterolemia, unspecified; I10 Essential (primary) hypertension; J45.909 Unspecified asthma, uncomplicated; K21.9 Gastro-esophageal reflux disease without esophagitis; E11.9 Type 2 diabetes mellitus without complications; E66.9 Obesity, unspecified; Z68.32 Body mass index [BMI] 32.0-32.9, adult; Z88.6 Allergy status to analgesic agent; Z88.5 Allergy status to narcotic agent; Z91.013 Allergy to seafood; Z88.2 Allergy status to sulfonamides; Z79.84 Long term (current) use of oral hypoglycemic drugs; Z79.899 Other long term (current) drug therapy
CPT/HCPCS: 36415; 74150; 80053; 80305; 81001; 85025; 96374; 96376; 99283; 99284; J1170

== ENCOUNTER 2022-04-26 16:28 | Emergency (ER) | payer OTHER, MEDICARE | END 2022-04-26 17:32 | disposition home or self-care (01) | LOC: DL.ED 16:28 | DX: S60.212A Contusion of left wrist, initial encounter (principal); J45.909 Unspecified asthma, uncomplicated; E78.00 Pure hypercholesterolemia, unspecified; I10 Essential (primary) hypertension; E11.9 Type 2 diabetes mellitus without complications; E66.9 Obesity, unspecified; Z68.1 Body mass index [BMI] 19.9 or less, adult; Z88.6 Allergy status to analgesic agent; Z88.5 Allergy status to narcotic agent; Z91.013 Allergy to seafood; Z88.2 Allergy status to sulfonamides | CPT/HCPCS: 73110-LT; 99283 ==

== ENCOUNTER 2022-06-17 11:30 | Emergency (ER) | payer OTHER, MEDICARE | END 2022-06-17 12:50 | disposition home or self-care (01) | LOC: DL.ED 11:30 | DX: S40.011A Contusion of right shoulder, initial encounter (principal); M19.011 Primary osteoarthritis, right shoulder; E78.00 Pure hypercholesterolemia, unspecified; I10 Essential (primary) hypertension; K21.9 Gastro-esophageal reflux disease without esophagitis; E11.9 Type 2 diabetes mellitus without complications; E66.9 Obesity, unspecified; Z68.33 Body mass index [BMI] 33.0-33.9, adult; Z91.013 Allergy to seafood; Z88.5 Allergy status to narcotic agent; Z88.2 Allergy status to sulfonamides; Z88.8 Allergy status to other drugs, medicaments and biological substances; Z79.899 Other long term (current) drug therapy; W10.8XXA Fall (on) (from) other stairs and steps, initial encounter | CPT/HCPCS: 73030-RT; 99283 ==

== ENCOUNTER 2022-09-27 17:51 | Emergency (ER) | payer OTHER, MEDICARE ==
[2022-09-27] MEDS ORDERED: Ondansetron 4 MG Tab.DIS PO ONE (17:52)
[2022-09-27] MEDS ORDERED: Sodium Chloride 0.9% 10 ML Syringe FLUSH PRN (18:09)
[2022-09-27] MEDS ORDERED: Ondansetron 4 MG/2 ML SDV IVPUSH ONE (18:32)
[2022-09-27 18:41] LABS: ANION GAP 18.2 mEq/L (7-13); CHLORIDE,CL 99 mmol/L (98-107); SODIUM,NA 140 mmol/L (136-145)
[2022-09-27 18:45] LABS: ESTIMATED GFR 74 mL/min (>=60)
[2022-09-27 18:47] LABS: PTT,PARTIAL THROMBOPLSTIN TIME 24.9 SEC (22.0-34.0)
[2022-09-27] MEDS ORDERED: Famotidine 20 MG/2 ML SDV IVPUSH ONE (18:48)
[2022-09-27] MEDS ORDERED: Clindamycin HCl 150 MG Cap PO ONE (18:49)
[2022-09-27] MEDS ORDERED: Azithromycin 250 MG Tab PO ONE (18:54)
[2022-09-27 18:57] LABS: CORONAVIRUS COVID-19 NAA NEGATIVE (NEGATIVE); RESPIRATORY SYNCYTIAL VIR NAA NEGATIVE (NEGATIVE)
[2022-09-27] MEDS ORDERED: Ondansetron 4 MG Tab.DIS ONE (19:31)
== END 2022-09-27 19:42 | disposition home or self-care (01) ==
LOC: DL.ED 17:51
DX: R11.2 Nausea with vomiting, unspecified (principal); T36.0X5A Adverse effect of penicillins, initial encounter; K02.9 Dental caries, unspecified; J45.909 Unspecified asthma, uncomplicated; E78.00 Pure hypercholesterolemia, unspecified; I10 Essential (primary) hypertension; E11.9 Type 2 diabetes mellitus without complications; E66.9 Obesity, unspecified; Z68.31 Body mass index [BMI] 31.0-31.9, adult; Z88.0 Allergy status to penicillin; Z88.5 Allergy status to narcotic agent; Z91.013 Allergy to seafood; Z88.2 Allergy status to sulfonamides; Z88.8 Allergy status to other drugs, medicaments and biological substances; Z79.899 Other long term (current) drug therapy; Z79.84 Long term (current) use of oral hypoglycemic drugs; Z20.822 Contact with and (suspected) exposure to COVID-19
CPT/HCPCS: 0241U; 36415; 71045; 80053; 82150; 83605; 83690; 83735; 84145; 84484; 85025; 85610; 85730; 86140; 87040; 93005; 96374; 96375; 99284-25; A9270-GY; J2405; J3490

== ENCOUNTER 2024-01-26 12:43 | Emergency (ER) | payer OTHER ==
[2024-01-26 13:15] LABS: BASOPHILS PERCENT AUTO 0.6 % (0.0-1.0); EOSINOPHILS PERCENT AUTO 1.4 % (1.0-3.0); HEMATOCRIT 41.8 % (40.0-54.0); HEMOGLOBIN 13.9 g/dL (14.0-18.0); LYMPHOCYTES PERCENT AUTO 24.5 % (20.5-50.1); MEAN CORPUSCULAR HEMOGLOBIN 33.2 pg (27.0-34.0); MEAN CORPUSCULAR HGB CONC 33.3 g/dL (33.0-35.0); MEAN CORPUSCULAR VOLUME 99.8 fL (80-100); MONOCYTES PERCENT AUTO 9.1 % (2-8); NEUTROPHILS PERCENT AUTO 64.4 % (42.2-75.2); PLATELET COUNT,PLT 180 10^3/uL (150-450); RED BLOOD CELL COUNT 4.19 10^6/uL (4.6-6.2); WHITE BLOOD CELL COUNT,WBC 8.8 10^3/uL (5.0-10.0)
[2024-01-26 13:31] LABS: B-TYPE NATRIURETIC PEPTIDE,BNP 17 pg/ml (0-100)
[2024-01-26 13:38] LABS: ALANINE AMINOTRANSFERASE,ALT 50 U/L (16-63); ALBUMIN 3.5 g/dL (3.4-5.0); ALKALINE PHOSPHATASE 47 U/L (46-116); ANION GAP 13.5 mEq/L (7-13); ASPARTATE AMNIOTRANSFERASE,AST 19 U/L (15-37); BILIRUBIN TOTAL 0.4 mg/dL (0.2-1.0); BLOOD UREA NITROGEN,BUN 18 mg/dL (7-18); BUN/CREATININE RATIO 17.6 (No establ ref range); CALCIUM 9.1 mg/dL (8.5-10.1); CARBON DIOXIDE,CO2 29 mmol/L (21-32); CHLORIDE,CL 105 mmol/L (98-107); CREATININE 1.02 mg/dL (0.70-1.30); EST CRCL DRUG DOSING (CG) 79.25 mL/min; ESTIMATED GFR 82 mL/min (>=60); ETHANOL BLOOD MEDICAL < 3 mg/dL (0); GLUCOSE RANDOM 199 mg/dL (70-99); LIPASE 51 U/L (16-77); MAGNESIUM 1.7 mg/dL (1.8-2.4); POTASSIUM,K 4.5 mmol/L (3.5-5.1); PROTEIN TOTAL,TP 6.9 g/dL (6.4-8.2); SODIUM,NA 143 mmol/L (136-145)
[2024-01-26] MEDS: Iopamidol 612 MG/ML 100 ML Bottle IVPUSH ONE (13:54)
[2024-01-26 14:30] LABS: APPEARANCE,URINE CLEAR (CLEAR); BILIRUBIN,URINE NEGATIVE (NEGATIVE); COLOR,URINE YELLOW (YELLOW); GLUCOSE,URINE NEGATIVE (NEGATIVE); KETONES,URINE NEGATIVE (NEGATIVE); LEUKOCYTE ESTERASE,URINE NEGATIVE (NEGATIVE); NITRITE,URINE NEGATIVE (NEGATIVE); OCCULT BLOOD,URINE NEGATIVE (NEGATIVE); PH,URINE 6.5 (5.0-9.0); PROTEIN,URINE 30 (NEGATIVE); UROBILINOGEN,URINE 0.2 mg/dL (0.2-1.0)
[2024-01-26 14:37] LABS: EPITHELIAL CELLS,URINE FEW /HPF (NOT SEEN); RBC,URINE 0-5 /HPF (0-5); WBC,URINE 0-5 /HPF (0-5/HPF)
[2024-01-26 14:38] LABS: AMORPHOUS SEDIMENT,URINE FEW /HPF (NOT SEEN); BACTERIA,URINE RARE /HPF (0-FEW/HPF); MUCUS,URINE FEW /LPF (NOT SEEN)
[2024-01-26] MEDS: Ketorolac 30 MG/ML SDV IVPUSH ONE (15:42)
[2024-01-26] MEDS: Orphenadrine 60 MG/2 ML Inj IV ONE (15:43)
[2024-01-26] MEDS: Magnesium Sulfate/Water 2 GM in Premix Bag 1 BAG IV ONE (15:44)
== END 2024-01-26 17:01 | disposition home or self-care (01) ==
LOC: DL.ED 12:43
DX: M54.50 Low back pain, unspecified (principal); G89.29 Other chronic pain; E83.42 Hypomagnesemia; R10.30 Lower abdominal pain, unspecified; I10 Essential (primary) hypertension; E78.00 Pure hypercholesterolemia, unspecified; J45.909 Unspecified asthma, uncomplicated; E11.9 Type 2 diabetes mellitus without complications; K21.9 Gastro-esophageal reflux disease without esophagitis; E66.9 Obesity, unspecified; Z79.899 Other long term (current) drug therapy; Z79.82 Long term (current) use of aspirin; Z88.0 Allergy status to penicillin; Z88.2 Allergy status to sulfonamides; Z88.5 Allergy status to narcotic agent; Z88.8 Allergy status to other drugs, medicaments and biological substances; Z91.013 Allergy to seafood; Z68.34 Body mass index [BMI] 34.0-34.9, adult
CPT/HCPCS: 36415; 71045; 72131; 74177; 80053; 80307; 81001; 83690; 83735; 83880; 84484; 85025; 93005; 96365; 96375; 99284; J1885; J2360; J3475; Q9967

== ENCOUNTER 2024-11-15 10:45 | Emergency (ER) | payer OTHER ==
[2024-11-15] MEDS ORDERED: Sodium Chloride 0.9% 10 ML Syringe FLUSH PRN (10:59)
[2024-11-15 11:17] LABS: BASOPHILS PERCENT AUTO 0.2 % (0.0-1.0); EOSINOPHILS PERCENT AUTO 1.5 % (1.0-3.0); HEMATOCRIT 41.8 % (40.0-54.0); HEMOGLOBIN 14.1 g/dL (14.0-18.0); LYMPHOCYTES PERCENT AUTO 14.8 % (20.5-50.1); MEAN CORPUSCULAR HEMOGLOBIN 32.6 pg (27.0-34.0); MEAN CORPUSCULAR HGB CONC 33.7 g/dL (33.0-35.0); MEAN CORPUSCULAR VOLUME 96.5 fL (80-100); MONOCYTES PERCENT AUTO 9.4 % (2-8); NEUTROPHILS PERCENT AUTO 74.1 % (42.2-75.2); PLATELET COUNT,PLT 241 10^3/uL (150-450); RED BLOOD CELL COUNT 4.33 10^6/uL (4.6-6.2); WHITE BLOOD CELL COUNT,WBC 12.2 10^3/uL (5.0-10.0)
[2024-11-15 11:21] LABS: BLOOD UREA NITROGEN,BUN 19 mg/dL (7-18); CALCIUM 9.6 mg/dL (8.5-10.1); CARBON DIOXIDE,CO2 28 mmol/L (21-32); CHLORIDE,CL 100 mmol/L (98-107); CREATININE 1.15 mg/dL (0.70-1.30); ESTIMATED GFR 71 mL/min (>=60); GLUCOSE RANDOM 128 mg/dL (70-99); SODIUM,NA 137 mmol/L (136-145)
[2024-11-15] MEDS: Iopamidol 612 MG/ML 100 ML Bottle IVPUSH ONE (11:23)
[2024-11-15 11:28] LABS: C-REACTIVE PROTEIN 4.82 ng/dL (<=0.50); MAGNESIUM 2.1 mg/dL (1.8-2.4)
[2024-11-15 11:40] LABS: LACTIC ACID 1.6 mmol/L (0.4-2.0)
[2024-11-15] MEDS: Ondansetron 4 MG/2 ML SDV IVPUSH ONE (11:44)
[2024-11-15] MEDS: fentaNYL 100 MCG/2 ML SDV IVPUSH ONE (11:44)
[2024-11-15] MEDS ORDERED: cefTRIAXone 1 GM, Lidocaine 1% 2.1 ML IM ONE (12:54)
[2024-11-15] MEDS: Take Home: Doxycycline 100 MG Cap, 4 Cap Pack PO ONE (12:59)
[2024-11-15] MEDS: VANCOmycin 1.75 GM in Sodium Chloride 0.9% 500 ML IV ONE (13:27)
[2024-11-15] MEDS: HYDROmorphone 0.5 MG/0.5 ML Syringe IVPUSH ONE (14:33)
== END 2024-11-15 15:03 ==
LOC: DL.ED 10:45
DX: T81.42XA Infection following a procedure, deep incisional surgical site, initial encounter (principal); E78.00 Pure hypercholesterolemia, unspecified; I10 Essential (primary) hypertension; E11.9 Type 2 diabetes mellitus without complications; Z88.0 Allergy status to penicillin; Z88.8 Allergy status to other drugs, medicaments and biological substances; Z88.2 Allergy status to sulfonamides; Z91.013 Allergy to seafood; Z79.51 Long term (current) use of inhaled steroids; Z79.84 Long term (current) use of oral hypoglycemic drugs; Z79.899 Other long term (current) drug therapy; Z86.16 Personal history of COVID-19; Z88.5 Allergy status to narcotic agent
CPT/HCPCS: 36415; 72129; 72132; 80048; 82947; 83605; 83735; 85025; 86140; 87040; 87070; 87077; 87186; 96365; 96366; 96375; 99284; 99285; J2405; J3010; J3371; J7040; Q9967

== ENCOUNTER 2025-04-11 11:26 | Emergency (ER) | payer OTHER ==
[2025-04-11] MEDS: Ketorolac 30 MG/ML SDV IM ONE (11:59)
== END 2025-04-11 14:27 | disposition home or self-care (01) ==
LOC: DL.ED 11:26
DX: M62.830 Muscle spasm of back (principal); I10 Essential (primary) hypertension; E78.00 Pure hypercholesterolemia, unspecified; K21.9 Gastro-esophageal reflux disease without esophagitis; J45.909 Unspecified asthma, uncomplicated; E11.9 Type 2 diabetes mellitus without complications; Z88.0 Allergy status to penicillin; Z91.013 Allergy to seafood; Z79.899 Other long term (current) drug therapy; Z79.84 Long term (current) use of oral hypoglycemic drugs; Z86.16 Personal history of COVID-19
CPT/HCPCS: 72125; 96372; 99283; 99284; A9270; J1885